=== PATIENT | female | born 1935 | race African-American/Black ===

== ENCOUNTER 2016-12-26 19:21 | Emergency (ER) | payer MEDICARE, MEDICAID ==
[~2016-12-26] VITALS: Ht 165.1 cm; Wt 81.6 kg
--- NOTE | 2016-12-26 19:27 | Emergency Room Report ---
History of Present Illness Present Illness HPI The patient presents via EMS with decreased level of consciousness. The patient was brought 5 PM. She then became gradually unresponsive. She doesn't shelter facility recovering from a brain bleed. Family arrived 45 minutes ago they called 911. Paramedics performed a LAPS evaluation. She had weakness but good strength bilaterally of her hands. The patient is responding to pain but does not communicate. Glucose in field 118. Baseline, she ambulates with assistance, communicates and is able to answer questions appropriately. No motor weakness according to family. No further history is available. 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 In addition to that she had a DVT of her left leg and cellulitis there. She's on warfarin. Allergies: Coded Allergies: CODEINE (Verified Allergy, Unknown, 12/26/16) Patient History Limited by: medical condition Past Medical History: see triage record, old chart reviewed Social History Narrative SNF Reviewed Nursing Documentation: PMH: Agreed, PSxH: Agreed Review of Systems All Other Systems: limited Physical Exam Vital Signs Date Time Temp Pulse Resp B/P Pulse Ox O2 Delivery O2 Flow Rate FiO2 12/26/16 19:18 68 18 97/52 95 Room Air Feels afebrile Sp02 EP Interpretation: reviewed, normal General Appearance: no apparent distress, other - GCSGCS = 7, Stupor Head: normocephalic Eyes: bilateral eye PERRL - difficult to assess as keeping eyes closed, bilateral eye normal inspection ENT: moist mucus membranes - poor dentition, gag + Neck: supple Respiratory: lungs clear, normal breath sounds Cardiovascular #1: regular rate, rhythm Cardiovascular #2: 2+ radial (R) Gastrointestinal: normal inspection, normal bowel sounds, non tender, no mass, non-distended Musculoskeletal: back normal Neurologic: responsive, facial droop, aphasia, motor weakness - L though uses both hands to protect eyes (R>L), Babinski - L, other - L facial paresis, grimmace with R, upgoing toe L Psychiatric: other - resp to pain R Skin: normal inspection, warm/dry Procedures Critical Care Time Critical Care Time Total Critical Care Time: 60 min bedside evaluation and treatment excludes procedures (EKG). Reason for critical care: acute stroke, monitoring BP, repeated neurologic examinations, transfer higher level of care Possible complications: hypotension, hypertension, MN, shock, arrhythmias, metabolic acidosis, end organ damage, respiratory failure. Interventions: Code stroke, eval for TPA, discussion family and neurointensivist , respond to BP fluctuations Course: Patient with ALOC. L sided weakness. Code Stroke. CT no bleed. Determination not TPA candidate. Discussion with neurointensivist, Santinoars, family. Arrange transfer. BP drop, NS begun. Responded with fluids. Arrange ALS transfer. Consultations: nursing staff, EMS, family, Santinoars Performed by: Dr. López Tolerated well condition = critical Medical Decision Making Diagnostic Impression: Primary Impression: Acute CVA (cerebrovascular accident) Additional Impression: Transient hypotension ER Course The patient presents with acute onset of decreased mentation. She has focal findings at this time. Differential includes stroke, brain bleed, exacerbation of prior stroke amongst others. Code stroke is called. Evaluation with the Hyperstat CT scan EKG and labs lizbet Lopez will be placed. 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 Due to the history of being on coumadin - not candidate for TPA. Calling [address] 20:02. Message left - valve machine operator suggests I keep calling. Discussing with [facility] Transfer Center: 20:10 Dr. Gutierrez. He accepts the patient. Repeat evaluation is unchanged. I discussed with family whether the shaking of the arms involved other parts of the body and they state no. Labs with INR 1.3. Rest unremarkable. Patient transfer to higher level of care. PRN coming 20 min ETA @ 21:00 (I called [facility] to consider LAFD). BP dropped to 92 systolic. NS 250 bolus given with elevation of BP to 112. PRN ambulance here. 20:48 - Dr. Mulligan returns call from [facility]. Ruben working on bed - asks that I hold on transfer until that time. Laboratory Tests Test 12/26/16 19:25 12/26/16 19:30 White Blood Count 5.0 K/UL (4.8-10.8) Red Blood Count 4.04 M/UL (4.20-5.40) L Hemoglobin 12.1 G/DL (12.0-16.0) Hematocrit 36.3 % (37.0-47.0) L Mean Corpuscular Volume 90 FL (80-99) Mean Corpuscular Hemoglobin 29.8 PG (27.0-31.0) Mean Corpuscular Hemoglobin Concent 33.2 G/DL (32.0-36.0) Red Cell Distribution Width 12.3 % (11.6-14.8) Platelet Count 248 K/UL (150-450) Mean Platelet Volume 7.3 FL (6.5-10.1) Neutrophils (%) (Auto) 49.2 % (45.0-75.0) Lymphocytes (%) (Auto) 38.3 % (20.0-45.0) Monocytes (%) (Auto) 8.6 % (1.0-10.0) Eosinophils (%) (Auto) 1.8 % (0.0-3.0) Basophils (%) (Auto) 2.1 % (0.0-2.0) H Prothrombin Time 14.0 SEC (9.30-11.50) H Prothrombin Time INR 1.3 (0.9-1.1) H PTT 34 SEC (23-33) H Sodium Level 139 mEQ/L (135-145) Potassium Level 4.0 mEQ/L (3.4-4.9) Chloride Level 100 mEQ/L (98-107) Carbon Dioxide Level 26 mEQ/L (20-30) Anion Gap 13 (5-15) Blood Urea Nitrogen 17 mg/dL (7-23) Creatinine 0.7 mg/dL (0.5-0.9) Estimate Glomerular Filtration Rate mL/min (>60) Glucose Level 118 mg/dL (74-106) H Calcium Level 8.6 mg/dL (8.6-10.2) Total Bilirubin 0.3 mg/dL (0.0-1.2) Aspartate Amino Transferase (AST) 11 U/L (5-40) Alanine Aminotransferase (ALT) 7 U/L (3-33) Alkaline Phosphatase 87 U/L (35-104) Total Creatine Kinase 42 U/L (26-140) Troponin I < 0.30 ng/mL (<=0.30) Total Protein 6.6 g/dL (6.6-8.7) Albumin 3.1 g/dL (3.5-5.2) L Globulin 3.5 g/dL Albumin/Globulin Ratio 0.8 (1.0-2.7) L Triglycerides Level 39 mg/dL (< 150) Cholesterol Level 165 mg/dL (< 200) LDL Cholesterol 103 mg/dL (60-99) H HDL Cholesterol 54 mg/dL (> 60) Cholesterol/HDL Ratio 3.1 (3.3-4.4) L Urine Color Pale yellow Urine Appearance Clear Urine pH 6 (4.5-8.0) Urine Specific [place] 1.015 (1.005-1.035) Urine Protein Negative (NEGATIVE) Urine Glucose (UA) Negative (NEGATIVE) Urine Ketones Negative (NEGATIVE) Urine Occult Blood 1+ (NEGATIVE) H Urine Nitrite Negative (NEGATIVE) Urine Bilirubin Negative (NEGATIVE) Urine Urobilinogen Normal MG/DL (0.0-1.0) Urine Leukocyte Esterase Negative (NEGATIVE) Urine RBC 0-2 /HPF (0 - 2) Urine WBC 0-2 /HPF (0 - 2) Urine Squamous Epithelial Cells Few /LPF (NONE/OCC) Urine Bacteria None /HPF (NONE) EKG Diagnostic Results Rate: normal Rhythm: NSR ST Segments: no acute changes - LVH Rhythm Strip Diag. Results EP Interpretation: yes Rhythm: NSR, no PVC's, no ectopy Chest X-Ray Diagnostic Results Chest X-Ray Ordered: Yes # of Views/Limited/Complete: 1 View EP Interpretation: Yes Interpretation: no consolidation, no effusion, no pneumothorax, no acute cardiopulmonary disease Indication: Other Impression: No acute disease Interpreting ER Provider: Maribel CT/MRI/US Diagnostic Results CT/MRI/US Diagnostic Results : Imaging Test Ordered: head Impression atrophy, prior SDH craniomalacia Status: unchanged Disposition: [facility] HOSP - higher level of care Condition: Critical Deangelo López M.D. Dec 26, 2016 19:27
[2016-12-26 19:52] LABS: BASOPHILS % (AUTO) 2.1 % (0.0-2.0); EOSINOPHILS % (AUTO) 1.8 % (0.0-3.0); LYMPHOCYTES % (AUTO) 38.3 % (20.0-45.0); MEAN CORPUSCULAR HEMOGLOBIN 29.8 PG (27.0-31.0); MEAN CORPUSCULAR HGB CONC 33.2 G/DL (32.0-36.0); MEAN CORPUSCULAR VOLUME 90 FL (80-99); MEAN PLATELET VOLUME 7.3 FL (6.5-10.1); MONOCYTES % (AUTO) 8.6 % (1.0-10.0); NEUTROPHILS % (AUTO) 49.2 % (45.0-75.0); PLATELET COUNT 248 K/UL (150-450); RED BLOOD COUNT 4.04 M/UL (4.20-5.40); RED CELL DISTRIBUTION WIDTH 12.3 % (11.6-14.8)
[2016-12-26 20:08] LABS: APPEARANCE,URINE CLEAR; KETONES,URINE NEGATIVE (NEGATIVE); LEUKOCYTE ESTERASE ,URINE NEGATIVE (NEGATIVE); NITRITE,URINE NEGATIVE (NEGATIVE); PH,URINE 6 (4.5-8.0); PROTEIN,URINE NEGATIVE (NEGATIVE); UROBILINOGEN,URINE NORMAL MG/DL (0.0-1.0)
[2016-12-26 20:17] LABS: RBC,URINE 0-2 /HPF (0 - 2); SQUAMOUS EPITHELIAL CELL,UR FEW /LPF (NONE/OCC); WBC,URINE 0-2 /HPF (0 - 2)
[2016-12-26 20:23] LABS: INR 1.3 (0.9-1.1)
[2016-12-26 20:28] LABS: TROPONIN I < 0.30 ng/mL (<=0.30)
[2016-12-26 20:33] LABS: ALANINE AMINOTRANSFERASE 7 U/L (3-33); ALBUMIN/GLOBULIN RATIO 0.8 (1.0-2.7); ANION GAP 13 (5-15); ASPARTATE AMINO TRANSFERASE 11 U/L (5-40); CALCIUM 8.6 mg/dL (8.6-10.2); CARBON DIOXIDE 26 mEQ/L (20-30); CHLORIDE 100 mEQ/L (98-107); CHOLESTEROL 165 mg/dL (< 200); CHOLESTEROL/HDL RATIO 3.1 (3.3-4.4); CREATININE 0.7 mg/dL (0.5-0.9); HEMOLYSIS 41; LDL CHOLESTEROL (CALC.) 103 mg/dL (60-99); SODIUM 139 mEQ/L (135-145); TOTAL PROTEIN 6.6 g/dL (6.6-8.7)
[2016-12-26] MEDS ORDERED: CATAPRES0.1 MG ORAL (20:55)
[2016-12-26] MEDS ORDERED: KEPPRA500 MG ORAL (20:55)
[2016-12-26] MEDS ORDERED: BENADRYL25 MG ORAL (20:55)
[2016-12-26] MEDS ORDERED: PROTONIX40 MG ORAL (20:55)
[2016-12-26] MEDS ORDERED: SENNA8.6 M2 PO (20:55)
[2016-12-26] MEDS ORDERED: DOCUSATE SODIU100 MG ORAL (20:55)
[2016-12-26] MEDS ORDERED: SEROQUEL25 MG ORAL (20:55)
[2016-12-26] MEDS ORDERED: DIOVAN160 MG ORAL (20:55)
[2016-12-26] MEDS ORDERED: MULTIVITAMINS1 EAC2 ORAL (20:55)
[2016-12-26] MEDS ORDERED: TYLENOL325 MG ORAL (20:55)
[2016-12-26 21:15] VITALS: BP 92/46
[2016-12-26 21:30] VITALS: BP 177/63
[2016-12-26 21:50] VITALS: BP 177/63
--- NOTE | 2016-12-27 10:40 | Diagnostic Imaging Report ---
Indications: Cough Technique: Portable AP chest Findings: Comparison: None Lungs, pleura clear. Heart size, pulmonary vasculature within normal limits. Aortic arch calcified and ectatic/elongated. Left paratracheal soft tissues apparently widened. Patient's head turned to right. Surgical clips in right axilla. IMPRESSION: No evidence of acute cardiopulmonary disease Aortosclerosis and probable chronic hypertensive change. Associated aneurysm not excludable. Apparent left paratracheal soft tissue widening may be artifactually enhanced due to head rotation. Pathology not excludable. Upright PA and lateral chest radiographs with better inspiratory effort and optimal technique recommended for more complete evaluation. Previous right axillary surgery
--- NOTE | 2016-12-28 20:07 | Cardiology Report ---
APPROVED REPORT EKG Measurement Heart [id number] Normal sinus rhythm Minimal voltage criteria for LVH, may be normal variant Prolonged QT Abnormal ECG
== END 2016-12-26 21:55 | disposition short-term general hospital (02) ==
LOC: EDBD 19:21 → EMR 20:41
DX: I63.9 Cerebral infarction, unspecified (principal); I95.9 Hypotension, unspecified; I10 Essential (primary) hypertension; E78.5 Hyperlipidemia, unspecified; Z85.3 Personal history of malignant neoplasm of breast; Z86.718 Personal history of other venous thrombosis and embolism; F25.9 Schizoaffective disorder, unspecified; Z79.899 Other long term (current) drug therapy; Z79.01 Long term (current) use of anticoagulants; Z88.6 Allergy status to analgesic agent
CPT/HCPCS: 36415; 70450; 71010; 80053; 80061; 81003; 82550; 82962; 84484; 85025; 85610; 85730; 86900; 86901; 93005; 96374

== ENCOUNTER 2018-08-19 16:12 | Inpatient (IN) | payer MEDICAID, MEDICARE ==
[~2018-08-19] VITALS: Ht 162.6 cm; Wt 58.1 kg
[~2018-08-19 16:12] MED LIST: BENADRYL25 MG ORAL; CATAPRES0.1 MG ORAL; DIOVAN160 MG ORAL; DOCUSATE SODIU100 MG ORAL; KEPPRA500 MG ORAL; MULTIVITAMINS1 EAC2 ORAL; PROTONIX40 MG ORAL; SENNA8.6 M2 PO; SEROQUEL25 MG ORAL; TYLENOL325 MG ORAL
[2018-08-19 16:15] VITALS: BP 126/66
--- NOTE | 2018-08-19 16:15 | NUR ---
ED Nurse Note: PT BROUGHT IN BY AMBULANCE FROM [facility] DUE TO NAUSEA AND 2 EPISODES OF VOMITING X THIS AM. PT IS AOX2 - NOT ORIENTED TO TIME OR SITUATION. ACTIVE BOWEL SOUNDS IN ALL QUADRANTS. ABDOMEN NONDISTENDED AND NONTENDER TO PALPATION. PT DENIES DIARRHEA.
--- NOTE | 2018-08-19 16:40 | NUR ---
ED Nurse Note: PT COMBATIVE AND RESISTIVE TO CARE. DR. LEAL AWARE. ORDERS FOR SOFT RESTRAINTS PLACED.
--- NOTE | 2018-08-19 16:54 | Emergency Room Report ---
History of Present Illness General Chief Complaint: Abdominal Pain Source: Medical Record Present Illness HPI Patient is an 83-year-old female brought in by EMS after increased abdominal pain and vomiting. Patient reports having increased epigastric pain. She reports having multiple episodes of vomiting. Patient was noted to have prior history of dementia patient [facility] in [facility] after multiple episodes of vomiting. Patient had the been diagnosed with pancreatitis in the past. Per patient's daughter she has had intermittent episodes where she begins vomiting. patient had previous diagnosis of pancreatitis and has had recurrent episodes of pancreatitis despite having never had any alcohol. History is markedly limited by patient's poor cooperation is good Allergies: Coded Allergies: CODEINE (Verified Allergy, Unknown, 12/26/16) Uncoded Allergies: CONTRAST (Allergy, Unknown, 08/19/18) Patient History Past Medical History: see triage record Reviewed Nursing Documentation: PMH: Agreed; PSxH: Agreed Nursing Documentation-PMH Past Medical History: No History, Except For Review of Systems All Other Systems: limited - by mental status Physical Exam Vital Signs Date Time Temp Pulse Resp B/P (MAP) Pulse Ox O2 Delivery O2 Flow Rate FiO2 08/19/18 16:11 98.1 79 16 124/63 94 Room Air General Appearance: alert, Chronically Ill ENT: normal pharynx, normal voice Neck: full range of motion Respiratory: lungs clear, normal breath sounds Cardiovascular #1: normal inspection, no edema Gastrointestinal: non tender, soft Musculoskeletal: normal inspection, back normal Neurologic: normal inspection, alert, responsive, golf course ranger III-XII nml as tested, motor weakness, other - confusion Psychiatric: other - somewhat confused Medical Decision Making Restraint Attestation I, Johnson Condon MD, have personally evaluated this patient. Laboratory tests have been reviewed and addressed accordingly. The patient is deemed to present a danger to themselves and/or others. This is based on the exam, history ( provided by patient, EMS/[facility] and/or family) and observed or reported behavior. Attempts for non-invasive measures have been considered and/or attempted, however, have been futile. It is in the best interest of the nursing staff, the patient, and others involved in this patient's care that behavioral restraints be applied. Patient evaluation reveals the following: . Patient confused attacking staff patient was placed in soft restraints. Diagnostic Impression: Primary Impression: Abdominal pain Additional Impressions: Chronic pancreatitis Dehydration ER Course Patient presented for abdominal pain. Differential diagnoses included ischemic bowel, appendicitis, perforated viscus, abdominal aortic aneurysm, inferior myocardial infarction, viral gastroenteritis among others. Because of complexity of patient's case laboratory testing and imaging studies were ordered. Patient was noted to have prior history of abdominal pain. She had previous episodes of pancreatitis. Patient was noted to have some persistent vomiting. Patient given antiemetics. CT the abdomen pelvis showed no evidence of acute obstruction. Dr. Jonh Vick was contacted for inpatient management due to covering physician for Dr. Gustavo Carrasquillo Labs Test 08/19/18 16:30 White Blood Count 9.8 K/UL (4.8-10.8) Red Blood Count 4.84 M/UL (4.20-5.40) Hemoglobin 14.0 G/DL (12.0-16.0) Hematocrit 41.8 % (37.0-47.0) Mean Corpuscular Volume 86 FL (80-99) Mean Corpuscular Hemoglobin 28.9 PG (27.0-31.0) Mean Corpuscular Hemoglobin Concent 33.5 G/DL (32.0-36.0) Red Cell Distribution Width 12.1 % (11.6-14.8) Platelet Count 417 K/UL (150-450) Mean Platelet Volume 5.8 FL (6.5-10.1) Neutrophils (%) (Auto) 82.4 % (45.0-75.0) Lymphocytes (%) (Auto) 10.5 % (20.0-45.0) Monocytes (%) (Auto) 6.3 % (1.0-10.0) Eosinophils (%) (Auto) 0.0 % (0.0-3.0) Basophils (%) (Auto) 0.8 % (0.0-2.0) Prothrombin Time 10.9 SEC (9.30-11.50) Prothromb Time International Ratio 1.0 (0.9-1.1) Activated Partial Thromboplast Time 30 SEC (23-33) Urine Color Yellow Urine Appearance Clear Urine pH 7 (4.5-8.0) Urine Specific [place] 1.010 (1.005-1.035) Urine Protein 2+ (NEGATIVE) Urine Glucose (UA) Negative (NEGATIVE) Urine Ketones 4+ (NEGATIVE) Urine Blood 1+ (NEGATIVE) Urine Nitrite Negative (NEGATIVE) Urine Bilirubin Negative (NEGATIVE) Urine Urobilinogen 1 MG/DL (0.0-1.0) Urine Leukocyte Esterase 1+ (NEGATIVE) Urine RBC 0-2 /HPF (0 - 2) Urine WBC 0-2 /HPF (0 - 2) Urine Squamous Epithelial Cells Few /LPF (NONE/OCC) Urine Bacteria None /HPF (NONE) Sodium Level 146 MMOL/L (136-145) Potassium Level 3.3 MMOL/L (3.5-5.1) Chloride Level 104 MMOL/L (98-107) Carbon Dioxide Level 30 MMOL/L (21-32) Anion Gap 12 mmol/L (5-15) Blood Urea Nitrogen 17 mg/dL (7-18) Creatinine 0.9 MG/DL (0.55-1.30) Estimat Glomerular Filtration Rate mL/min (>60) Glucose Level 119 MG/DL (74-106) Lactic Acid Level 1.00 mmol/L (0.4-2.0) Calcium Level 9.1 MG/DL (8.5-10.1) Phosphorus Level 3.1 MG/DL (2.5-4.9) Magnesium Level 2.5 MG/DL (1.8-2.4) Total Bilirubin 0.4 MG/DL (0.2-1.0) Aspartate Amino Transf (AST/SGOT) 14 U/L (15-37) Alanine Aminotransferase (ALT/SGPT) 15 U/L (12-78) Alkaline Phosphatase 127 U/L (46-116) Total Creatine Kinase 57 U/L (26-308) Creatine Kinase MB 0.9 NG/ML (0.0-3.6) Creatine Kinase MB Relative Index 1.5 Troponin I 0.035 ng/mL (0.000-0.056) Pro-B-Type Natriuretic Peptide 551 pg/mL (0-125) Total Protein 8.3 G/DL (6.4-8.2) Albumin 3.5 G/DL (3.4-5.0) Globulin 4.8 g/dL Albumin/Globulin Ratio 0.7 (1.0-2.7) EKG Diagnostic Results Rate: normal Rhythm: NSR ST Segments: no acute changes Last Vital Signs Date Time Temp Pulse Resp B/P (MAP) Pulse Ox O2 Delivery O2 Flow Rate FiO2 08/19/18 16:11 98.1 79 16 124/63 94 Room Air Status: unchanged Disposition: ADMITTED INPATIENT Condition: Serious Johnson Condon MD Aug 19, 2018 16:54
--- NOTE | 2018-08-19 16:55 | NUR ---
ED Nurse Note: PT NOW CALM AND VERBALIZES THAT SHE WILL BE COOPERATIVE TO CARE. RESTRAINTS REMOVED. PT CALM AND COOPERATIVE. FAMILY AT BEDSIDE.
[2018-08-19 17:03] LABS: BASOPHILS % (AUTO) 0.8 % (0.0-2.0); HEMATOCRIT 41.8 % (37.0-47.0); LYMPHOCYTES % (AUTO) 10.5 % (20.0-45.0); MEAN CORPUSCULAR VOLUME 86 FL (80-99); MONOCYTES % (AUTO) 6.3 % (1.0-10.0); NEUTROPHILS % (AUTO) 82.4 % (45.0-75.0); PLATELET COUNT 417 K/UL (150-450); RED BLOOD COUNT 4.84 M/UL (4.20-5.40); RED CELL DISTRIBUTION WIDTH 12.1 % (11.6-14.8); WHITE BLOOD COUNT 9.8 K/UL (4.8-10.8)
[2018-08-19 17:13] LABS: ANION GAP 12 mmol/L (5-15); BLOOD UREA NITROGEN 17 mg/dL (7-18); CALCIUM 9.1 MG/DL (8.5-10.1); CARBON DIOXIDE 30 MMOL/L (21-32); CHLORIDE 104 MMOL/L (98-107); CREATININE 0.9 MG/DL (0.55-1.30); POTASSIUM 3.3 MMOL/L (3.5-5.1); SODIUM 146 MMOL/L (136-145)
[2018-08-19 17:14] LABS: APPEARANCE,URINE CLEAR; BILIRUBIN, URINE NEGATIVE (NEGATIVE); GLUCOSE, URINE (UA) NEGATIVE (NEGATIVE); KETONES,URINE 4+ (NEGATIVE); LEUKOCYTE ESTERASE ,URINE 1+ (NEGATIVE); NITRITE,URINE NEGATIVE (NEGATIVE); PH,URINE 7 (4.5-8.0); PROTEIN,URINE 2+ (NEGATIVE); UROBILINOGEN,URINE 1 MG/DL (0.0-1.0)
[2018-08-19 17:15] LABS: COLOR,URINE YELLOW
[2018-08-19 17:27] LABS: ALANINE AMINOTRANSFERASE 15 U/L (12-78); ALBUMIN 3.5 G/DL (3.4-5.0); ALBUMIN/GLOBULIN RATIO 0.7 (1.0-2.7); ALKALINE PHOSPHATASE 127 U/L (46-116); ASPARTATE AMINO TRANSFERASE 14 U/L (15-37); BILIRUBIN,TOTAL 0.4 MG/DL (0.2-1.0); CREATINE KINASE 57 U/L (26-308); PHOSPHORUS 3.1 MG/DL (2.5-4.9)
[2018-08-19 17:30] VITALS: BP 139/54
[2018-08-19 18:05] LABS: CKMB 0.9 NG/ML (0.0-3.6)
[2018-08-19] MEDS ORDERED: Isovue-300 100ml vial INJ PRN (18:15)
--- NOTE | 2018-08-19 19:13 | NUR ---
ED Nurse Note: REPORT GIVEN TO ALLYN MARTIN.
--- NOTE | 2018-08-19 19:21 | NUR ---
ED Nurse Note: Received report from Duane GRUBER. Pt in bed awake and calm with daughter at bedside. No distress noted. Pt's needs met. Awaiting bed for admission transfer. Will continue to monitor.
[2018-08-19 19:31] VITALS: BP 124/60
[2018-08-19] MEDS ORDERED: FAMOTIDINE20 MG ORAL (19:54)
[2018-08-19] MEDS ORDERED: MOM30 ML ORAL (19:54)
[2018-08-19] MEDS ORDERED: BISACODYL5 MG ORAL (19:54)
[2018-08-19] MEDS ORDERED: COMPAZINE10 MG ORAL (19:54)
[2018-08-19] MEDS ORDERED: ARICEPT5 MG ORAL (19:54)
[2018-08-19] MEDS ORDERED: LEVETIRACETAM1000 MG ORAL (19:54)
[2018-08-19] MEDS ORDERED: NORCO 5-325 TA1 EACH ORAL (19:54)
[2018-08-19] MEDS ORDERED: NORVASC10 MG ORAL (19:54)
[2018-08-19 21:30] VITALS: BP 118/46
[2018-08-19 23:30] VITALS: BP 127/78
[2018-08-20] VITALS (7 sets, daily range): BP systolic 120–142; BP diastolic 61–81
--- NOTE | 2018-08-20 00:22 | NUR ---
ED Nurse Note: Called and left page message with MD Gonsalez's secretary bookkeeper. Awaiting call back. CN made aware.
--- NOTE | 2018-08-20 01:35 | NUR ---
ED Nurse Note: Pt awake, confused, but stable and calm. No dsitress noted. Will continue to monitor.
--- NOTE | 2018-08-20 02:47 | NUR ---
ED Nurse Note: Report given to Pascale GRUBER for admission transfer on over telephone.
--- NOTE | 2018-08-20 03:10 | NUR ---
NURSE NOTES: RECEIVED PATIENT FROM ER, GOT REPORT FROM ALLYN BENITEZ. PATIENT IN BED ALERT TO NAME AND PLACE, CONFUSED. IV IN PLACE PATENT. PATIENT UNABLE TO SIGN BELONGING LIST, VERIFIED WITH SECOND RN, DEBBIE, BELONGINGS ONLY CAP AND BLANKET. PATIENT DENIES PAIN AND NO S/S DISTRESS NOTED. SKIN ASSESSMENT DONE, NOTED WITH WOUND/PRESSURE ULCER ON RIGHT BUTTOCK, WCP TAKEN. BED IN LOWEST POSITION, CALL LIGHT WITHIN REACH. WILL CONTINUE TO MONITOR.
--- NOTE | 2018-08-20 04:10 | NUR ---
NURSE NOTES: CALLED AND SPOKE DR. PAYNE AND RECEIVED ADMISSION ORDERS. WHEN NURSE ASKED ABOUT DVT PROPHYLAXIS AND CODE STATUS, STATED "I'LL DO IT LATER." AND HUNG UP THE PHONE. REST OF THE ADMISSION ORDERS WERE CARRIED OUT. CHARGE NURSE MADE AWARE.
[2018-08-20] MEDS ORDERED: Bisacodyl EC 5mg tab ORAL PRN (04:30)
[2018-08-20] MEDS ORDERED: Milk of Magnesia 30ml Ud ORAL PRN (04:30)
--- NOTE | 2018-08-20 07:33 | NUR ---
HAND-OFF: Report given to ADITHYA TO RN.
--- NOTE | 2018-08-20 08:05 | NUR ---
NURSE NOTES: Pt pleasant, assisted with breakfast tray. Answered all questions appropriately. No signs of distress. Introduced to call light , and use. Current plan of care will be followed
[2018-08-20] MEDS: Docusate 100mg cap ORAL SCH ×2 (09:57→17:49)
[2018-08-20] MEDS: Donepezil 5mg Tab ORAL SCH ×2 (09:57→17:49)
[2018-08-20] MEDS: Sennosides 8.6mg tab ORAL SCH (09:57)
--- NOTE | 2018-08-20 10:17 | NUR ---
NURSE NOTES: Pt refused Keppra risk and benefits explained. Pt stated she is taking to much medication and usually does not take so much. Ordred dose ex palined. Repeatedly placed pill in each hand has if it was taken. Pt stated she would save it for later. Safety measures explained
--- NOTE | 2018-08-20 11:00 | NUR ---
NURSE NOTES: Per report of family member pt was awake passed 2:00 oclock. Pt is sleeping comfotably
[2018-08-20 13:05] LABS: ANION GAP 7 mmol/L (5-15); BLOOD UREA NITROGEN 19 mg/dL (7-18); CALCIUM 8.9 MG/DL (8.5-10.1); CARBON DIOXIDE 30 MMOL/L (21-32); CHLORIDE 110 MMOL/L (98-107); POTASSIUM 3.2 MMOL/L (3.5-5.1); SODIUM 147 MMOL/L (136-145)
[2018-08-20 13:10] LABS: BASOPHILS % (AUTO) 1.2 % (0.0-2.0); EOSINOPHILS % (AUTO) 1.6 % (0.0-3.0); HEMATOCRIT 36.7 % (37.0-47.0); HEMOGLOBIN 11.9 G/DL (12.0-16.0); LYMPHOCYTES % (AUTO) 21.8 % (20.0-45.0); MEAN CORPUSCULAR VOLUME 88 FL (80-99); MONOCYTES % (AUTO) 6.7 % (1.0-10.0); NEUTROPHILS % (AUTO) 68.7 % (45.0-75.0); PLATELET COUNT 353 K/UL (150-450); RED BLOOD COUNT 4.15 M/UL (4.20-5.40); RED CELL DISTRIBUTION WIDTH 13.3 % (11.6-14.8); WHITE BLOOD COUNT 7.2 K/UL (4.8-10.8)
--- NOTE | 2018-08-20 14:34 | NUR ---
CASE MANAGEMENT: INITIAL REVIEW 83 YO F BIBA FROM [facility] CC: ABD PAIN PMHx: DENIES SI:GEN WEAKNESS. DEHYDRATION. T 98.1 HR 79 RR 16 B/P 124/63 SATS 94% ON RA NA 146 K 3.3 GLU 119 MG 2.5 AST 14 ALP 127 IS: NS BOLUS X1 ZOFRAN IV X1 PATIENT ADMITTED TO MED/SURG 08/19/2018 @ 1923 DCP: PATIENT TO BE DISCHARGED TO SNF ONCE MEDICALLY CLEARED. PLAN OF CARE: WOUND CARE
--- NOTE | 2018-08-20 19:30 | NUR ---
NURSE NOTES: Received patient in bed awake with periods of confusion. Re-orient patient to place and time. No signs of distress noted. No facial grimacing noted. Inserted IV line left hand 22 and fluids running at 75 cc/hr. Bed in lowest position and locked. Call light provided and instructed patient to call if need of help. Will continue to monitor.
--- NOTE | 2018-08-20 20:12 | NUR ---
NURSE NOTES: Pt slightly confused. Required to be reorientated to time and place. Dr Caicedo phoned in order to obtain pending orders, gave orders for pt to have Lovenox 30 mg subq daily, informed that pt is incontinent and is unaware of when she has to urinate gave okay to obtain specimen by straight cath. Sister was here earlier in shift. Pt is able to follow commands. Call light is in reach. Oncoming nurse made aware of new orders
--- NOTE | 2018-08-20 20:17 | NUR ---
HAND-OFF: Report given to .Maximino GRUBER
--- NOTE | 2018-08-20 20:20 | History and Physical ---
History of Present Illness General Date patient seen: Aug 20, 2018 Reason for Hospitalization: Abdominal Pain Present Illness HPI 83 y/o aa female sent from snf last night after had n/v x2. Pt. says feels better today. She had this previously denies f/c, no abd pain or diarrhea. says uop ok, appetite has improved. Allergies: Coded Allergies: CODEINE (Verified Allergy, Unknown, 12/26/16) Uncoded Allergies: CONTRAST (Allergy, Unknown, 08/19/18) Medication History Scheduled Amlodipine Besylate (Norvasc), 10 MG ORAL DAILY, (Reported) Docusate Sodium* (Docusate Sodium*), 100 MG ORAL TWICE A DAY, (Reported) Donepezil Hcl* (Aricept*), 5 MG ORAL BID, (Reported) Famotidine (Famotidine), 20 MG ORAL DAILY, (Reported) Levetiracetam (Levetiracetam), 1,000 MG ORAL Q12HR, (Reported) Sennosides (Senna), 8.6 MG PO DAILY, (Reported) Scheduled PRN Acetaminophen (Tylenol), 650 MG ORAL Q4HR PRN for For Pain, (Reported) Bisacodyl* (Dulcolax*), 5 MG ORAL DAILY PRN for Constipation, (Reported) Clonidine Hcl* (Catapres*), 0.1 MG ORAL EVERY 6 HOURS PRN for For High Blood Pressure, (Reported) Hydrocodone Bit/Acetaminophen 5-325* ([place] 5-325*), 1 TAB ORAL Q4H PRN for Severe Pain (Pain Scale 7-10), (Reported) Magnesium Hydroxide (Milk of Magnesia), 30 ML ORAL DAILY PRN for Constipation, ( Reported) Prochlorperazine (Compazine*), 10 MG ORAL Q6H PRN for Nausea & Vomiting, ( Reported) Discontinued Medications Diphenhydramine Hcl* (Benadryl*), 50 MG ORAL Q8HR PRN for Itching, (Reported) Discontinued Reason: Pt stopped taking med Levetiracetam (Keppra), 500 MG ORAL BID, (Reported) Discontinued Reason: Pt stopped taking med Multivitamins* (Multivitamins*), 1 TAB ORAL DAILY, (Reported) Discontinued Reason: Pt stopped taking med Pantoprazole* (Protonix*), 40 MG ORAL DAILY, (Reported) Discontinued Reason: Pt stopped taking med Quetiapine Fumarate* (Seroquel*), 25 MG ORAL DAILY, (Reported) Discontinued Reason: Pt stopped taking med Valsartan (Diovan), 80 MG ORAL DAILY, (Reported) Discontinued Reason: Pt stopped taking med Patient History Limited by: age, medical condition History Provided By: Patient Healthcare decision maker janette chavez, daughter Resuscitation status Advanced Directive on File Review of Systems Constitutional: Reports: malaise Eye: Denies: no symptoms, see HPI, eye pain, blurred vision, tearing, double vision, nose pain, nose congestion, acuity changes, discharge, other ENT: Denies: no symptoms, see HPI, ear pain, ear discharge, nose pain, nose congestion, throat pain, throat swelling, mouth pain, hearing loss, nasal discharge, other Respiratory: Denies: no symptoms, see HPI, cough, orthopnea, shortness of breath, stridor, wheezing, JALLOH, sputum, other Cardiovascular: Denies: no symptoms, see HPI, chest pain, edema, palpitations, syncope, PND, other Gastrointestinal: Reports: nausea, vomiting Genitourinary: Denies: no symptoms, see HPI, discharge, dysuria, frequency, hematuria, pain, retention, incontinence, urgency, vag bleed/dc, other Musculoskeletal: Denies: no symptoms, see HPI, back pain, gout, joint pain, joint swelling, muscle pain, muscle stiffness, other Skin: Denies: no symptoms, see HPI, rash, change in color, change in hair/nails , dryness, lesions, other Psychiatric: Denies: no symptoms, see HPI, prior hx, anxiety, depressed feelings, emotional problems, SI, HI, hallucinations, other Neurological: Denies: no symptoms, see HPI, headache, numbness, paresthesia, seizure, tingling, tremors, focal weakness, syncope, dizziness, other Endocrine: Denies: no symptoms, see HPI, excessive sweating, flushing, intolerance to temperature, increased thirst, increased urine, unexplained weight loss, other Physical Exam General Appearance: no apparent distress HEENT: normocephalic, atraumatic, mucous membranes moist, PERRL Neck: non-tender, supple Respiratory/Chest: chest wall non-tender, lungs clear, no accessory muscle use Breasts: no discharge Cardiovascular/Chest: normal peripheral pulses, normal rate Abdomen: normal bowel sounds, soft, no organomegaly, no mass Genitourinary/Rectal: normal genital exam Extremities: non-tender 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, no motor/sensory deficits, responsive Musculoskeletal: normal muscle bulk Last 24 Hour Vital Signs Date Time Temp Pulse Resp B/P (MAP) Pulse Ox O2 Delivery O2 Flow Rate FiO2 08/20/18 12:00 97.9 68 16 142/75 (97) 97 08/20/18 09:56 71 133/79 08/20/18 09:00 Room Air 08/20/18 08:00 97.8 71 18 133/69 (90) 95 08/20/18 04:41 Room Air 08/20/18 03:55 98.0 74 18 120/69 (86) 95 08/20/18 02:41 98.0 77 15 134/61 100 Room Air 08/20/18 02:30 98.0 71 15 134/61 100 Room Air 08/20/18 01:30 98.0 73 15 122/81 99 Room Air 08/19/18 23:30 98.2 71 14 127/78 100 Room Air 08/19/18 21:30 98.1 71 16 118/46 99 Room Air Intake and Output 08/19/18 08/20/18 19:00 07:00 Intake Total 1000 ml 60 ml Balance 1000 ml 60 ml Intake Oral 60 ml IV Total 1000 ml # Voids 1 1 Laboratory Tests Test 08/20/18 11:00 White Blood Count 7.2 K/UL (4.8-10.8) Red Blood Count 4.15 M/UL (4.20-5.40) L Hemoglobin 11.9 G/DL (12.0-16.0) L Hematocrit 36.7 % (37.0-47.0) L Mean Corpuscular Volume 88 FL (80-99) Mean Corpuscular Hemoglobin 28.7 PG (27.0-31.0) Mean Corpuscular Hemoglobin Concent 32.5 G/DL (32.0-36.0) Red Cell Distribution Width 13.3 % (11.6-14.8) Platelet Count 353 K/UL (150-450) Mean Platelet Volume 6.0 FL (6.5-10.1) L Neutrophils (%) (Auto) 68.7 % (45.0-75.0) Lymphocytes (%) (Auto) 21.8 % (20.0-45.0) Monocytes (%) (Auto) 6.7 % (1.0-10.0) Eosinophils (%) (Auto) 1.6 % (0.0-3.0) Basophils (%) (Auto) 1.2 % (0.0-2.0) Sodium Level 147 MMOL/L (136-145) H Potassium Level 3.2 MMOL/L (3.5-5.1) L Chloride Level 110 MMOL/L (98-107) H Carbon Dioxide Level 30 MMOL/L (21-32) Anion Gap 7 mmol/L (5-15) Blood Urea Nitrogen 19 mg/dL (7-18) H Creatinine 1.0 MG/DL (0.55-1.30) Estimat Glomerular Filtration Rate mL/min (>60) Glucose Level 95 MG/DL (74-106) Calcium Level 8.9 MG/DL (8.5-10.1) Height (Feet): 5 Height (Inches): 4.00 Weight (Pounds): 128 Medications Current Medications Medications (Trade) Dose Ordered Sig/Nir Route PRN Reason Start Time Stop Time Status Last Admin Dose Admin Acetaminophen (Tylenol) 650 mg Q4HR PRN ORAL For Pain 08/20/18 04:30 09/19/18 04:29 Amlodipine Besylate (Norvasc) 10 mg DAILY ORAL 08/20/18 09:00 09/19/18 08:59 08/20/18 09:56 Bisacodyl (Dulcolax) 5 mg DAILY PRN ORAL Constipation 08/20/18 04:30 09/19/18 04:29 Clonidine HCl (Catapres Tab) 0.1 mg EVERY 6 HOURS PRN ORAL For High Blood Pressure 08/20/18 04:30 09/19/18 04:29 Docusate Sodium (Colace) 100 mg TWICE A DAY ORAL 08/20/18 09:00 09/19/18 08:59 08/20/18 17:49 Donepezil HCl (Aricept) 5 mg BID ORAL 08/20/18 09:00 09/19/18 08:59 08/20/18 17:49 Enoxaparin Sodium (Lovenox) 30 mg DAILY SUBQ 08/21/18 09:00 09/20/18 08:59 Famotidine (Pepcid) 20 mg DAILY ORAL 08/20/18 09:00 09/19/18 08:59 Iopamidol (Isovue-300 100ml) 100 ml NOW PRN INJ Radiology Procedure 08/19/18 18:15 Levetiracetam (Keppra) 1,000 mg Q12HR ORAL 08/20/18 09:00 09/19/18 08:59 Magnesium Hydroxide (Mom) 30 ml DAILY PRN ORAL Constipation 08/20/18 04:30 09/19/18 04:29 Ondansetron HCl (Zofran) 4 mg Q6H PRN IVP Nausea & Vomiting 08/20/18 04:15 09/19/18 04:14 Sennosides (Senokot) 8.6 mg DAILY ORAL 08/20/18 09:00 09/19/18 08:59 08/20/18 09:57 Assessment/Plan Problem List: (1) HTN (hypertension) ICD Codes: I10 - Essential (primary) hypertension SNOMED: 09940546 Qualifiers: Qualified Codes: I10 - Essential (primary) hypertension (2) CHF (congestive heart failure) Assessment & Plan: volume down now, control bp ICD Codes: I50.9 - Heart failure, unspecified SNOMED: 26787126 (3) DM2 (diabetes mellitus, type 2) Assessment & Plan: follow bs closely ICD Codes: E11.9 - Type 2 diabetes mellitus without complications SNOMED: 23697821 (4) Dehydration Assessment & Plan: -start ivf -zofran for n/v prn ICD Codes: E86.0 - Dehydration SNOMED: 40319378 (5) Abdominal pain Assessment & Plan: -denies now ICD Codes: R10.9 - Unspecified abdominal pain SNOMED: 01169632 Qualifiers: Qualified Codes: R10.84 - Generalized abdominal pain Status: stable Jonh Gonsalez M.D. Aug 20, 2018 20:20
[2018-08-20] MEDS: 1/2NS w/KCl 20mEq 1000ml 1,000 ML IV SCH (21:56)
[2018-08-20] MEDS: NovoLOG Insulin Flexpen SUBQ SCH (21:57)
[2018-08-21] VITALS: BP 153/67
[2018-08-21 04:00] VITALS: BP 158/66
--- NOTE | 2018-08-21 05:30 | NUR ---
NURSE NOTES: Collected urine through straight cath order by Dr. Gonsalez for UA. Patient tolerwate Addendum: 08/21/18 at 0654 by ESTER LONG RN RN Collected urine through straight cath order by Dr. Gonsalez for UA. Patient tolerated it well. Send to LAB.
[2018-08-21] MEDS: NovoLOG Insulin Flexpen SUBQ SCH ×4 (05:59→21:00)
[2018-08-21 07:25] LABS: APPEARANCE,URINE CLEAR; BILIRUBIN, URINE NEGATIVE (NEGATIVE); COLOR,URINE PALE YELLOW; GLUCOSE, URINE (UA) NEGATIVE (NEGATIVE); KETONES,URINE NEGATIVE (NEGATIVE); LEUKOCYTE ESTERASE ,URINE 1+ (NEGATIVE); NITRITE,URINE NEGATIVE (NEGATIVE); PH,URINE 8 (4.5-8.0); PROTEIN,URINE NEGATIVE (NEGATIVE); UROBILINOGEN,URINE 1 MG/DL (0.0-1.0)
--- NOTE | 2018-08-21 07:29 | NUR ---
HAND-OFF: Report given to ALLYN Burrell.
[2018-08-21 07:46] LABS: BASOPHILS % (AUTO) 1.1 % (0.0-2.0); EOSINOPHILS % (AUTO) 2.4 % (0.0-3.0); HEMATOCRIT 35.6 % (37.0-47.0); HEMOGLOBIN 11.8 G/DL (12.0-16.0); LYMPHOCYTES % (AUTO) 17.8 % (20.0-45.0); MEAN CORPUSCULAR VOLUME 88 FL (80-99); MONOCYTES % (AUTO) 8.8 % (1.0-10.0); NEUTROPHILS % (AUTO) 69.9 % (45.0-75.0); PLATELET COUNT 318 K/UL (150-450); RED BLOOD COUNT 4.03 M/UL (4.20-5.40); RED CELL DISTRIBUTION WIDTH 12.7 % (11.6-14.8); WHITE BLOOD COUNT 5.9 K/UL (4.8-10.8)
--- NOTE | 2018-08-21 07:59 | NUR ---
NURSE NOTES: Pt received awake , Attempting to wrap up morning breakfast," I am going to save it for later." Pt encouraged to eat, substitute offered with refusal. Call light is in reach . Current plan of care will be followed
[2018-08-21 08:00] VITALS: BP 139/77
[2018-08-21 08:07] LABS: ANION GAP 7 mmol/L (5-15); BLOOD UREA NITROGEN 10 mg/dL (7-18); CALCIUM 8.1 MG/DL (8.5-10.1); CARBON DIOXIDE 31 MMOL/L (21-32); CHLORIDE 107 MMOL/L (98-107); CREATININE 0.7 MG/DL (0.55-1.30); POTASSIUM 3.3 MMOL/L (3.5-5.1); SODIUM 144 MMOL/L (136-145)
[2018-08-21] MEDS: Docusate 100mg cap ORAL SCH ×2 (10:18→18:22)
[2018-08-21] MEDS: Sennosides 8.6mg tab ORAL SCH (10:18)
[2018-08-21] MEDS: Donepezil 5mg Tab ORAL SCH ×2 (10:19→18:22)
[2018-08-21] MEDS: Enoxaparin 30mg Inj SUBQ SCH (10:21)
[2018-08-21 12:00] VITALS: BP 141/62
[2018-08-21] MEDS: 1/2NS w/KCl 20mEq 1000ml 1,000 ML IV SCH (12:04)
[2018-08-21 16:00] VITALS: BP 138/69
--- NOTE | 2018-08-21 16:28 | Cardiology Report ---
APPROVED REPORT EKG Measurement Heart [id number] Normal sinus rhythm Possible Left atrial enlargement Borderline ECG
--- NOTE | 2018-08-21 19:35 | NUR ---
NURSE NOTES: Received patient in bed awake with periods of confusion, re-orient patient with time and place. No signs of pain or any discomfort noted. IV line intact and fluids running 75 cc/hr. Bed in lowest position and locked. Provided call light and instructed patient to use when need of help. Will continue to monitor.
[2018-08-21 20:00] VITALS: BP 140/97
--- NOTE | 2018-08-21 20:01 | NUR ---
NURSE NOTES: Pt required more assistance today with plan of care. Does display confusion. Ate more when fed. Requires repeated redirection. IV remains patent. phoned earlier in shift to report abnormal lab. NO NEW ORDERS given. Family has been at the bed side. Repositioned q2 hours for comfort. Pt at times is restless moving sheets and blankets. Cooperated with medication regimen to day.
--- NOTE | 2018-08-21 20:05 | NUR ---
HAND-OFF: Report given to Minerva GRUBER.
[2018-08-22] VITALS: BP 136/71
[2018-08-22] MEDS: 1/2NS w/KCl 20mEq 1000ml 1,000 ML IV SCH (00:47)
[2018-08-22 04:00] VITALS: BP 153/73
[2018-08-22] MEDS: NovoLOG Insulin Flexpen SUBQ SCH ×2 (06:30→11:30)
--- NOTE | 2018-08-22 07:35 | NUR ---
HAND-OFF: Report given to ALLYN De La Rosa.
[2018-08-22 08:00] VITALS: BP 151/73
[2018-08-22] MEDS: Docusate 100mg cap ORAL SCH (09:19)
[2018-08-22] MEDS: Sennosides 8.6mg tab ORAL SCH (09:19)
[2018-08-22] MEDS: Donepezil 5mg Tab ORAL SCH (09:19)
[2018-08-22] MEDS: Enoxaparin 30mg Inj SUBQ SCH (09:22)
--- NOTE | 2018-08-22 10:20 | Nephrology Progress Note ---
Assessment/Plan Problem List: (1) HTN (hypertension) Assessment & Plan: -adjust meds to better control ICD Codes: I10 - Essential (primary) hypertension SNOMED: 84811738 Qualifiers: Qualified Codes: I10 - Essential (primary) hypertension (2) CHF (congestive heart failure) Assessment & Plan: volume down now, control bp with afterload reducers ICD Codes: I50.9 - Heart failure, unspecified SNOMED: 01723535 (3) DM2 (diabetes mellitus, type 2) Assessment & Plan: follow bs closely ICD Codes: E11.9 - Type 2 diabetes mellitus without complications SNOMED: 71836059 (4) Dehydration Assessment & Plan: -start ivf -zofran for n/v prn ICD Codes: E86.0 - Dehydration SNOMED: 79800317 (5) Abdominal pain Assessment & Plan: -denies now ICD Codes: R10.9 - Unspecified abdominal pain SNOMED: 99237699 Qualifiers: Qualified Codes: R10.84 - Generalized abdominal pain Subjective Date patient seen: Aug 21, 2018 Respiratory: Reports: no symptoms Gastrointestinal/Abdominal: Reports: no symptoms Neurologic/Psychiatric: Reports: no symptoms Allergies: Coded Allergies: CODEINE (Verified Allergy, Unknown, 12/26/16) Uncoded Allergies: CONTRAST (Allergy, Unknown, 08/19/18) Subjective pt. seen and examined good uop no further n/v Objective Last 24 Hour Vital Signs Date Time Temp Pulse Resp B/P (MAP) Pulse Ox O2 Delivery O2 Flow Rate FiO2 08/22/18 09:19 68 151/73 08/22/18 08:00 97.7 68 18 151/73 (99) 97 08/22/18 04:00 97.4 73 16 153/73 (99) 97 08/22/18 00:00 97.9 69 16 136/71 (92) 98 08/21/18 21:00 Room Air 08/21/18 20:00 98.4 71 16 140/97 (111) 95 08/21/18 16:00 97.8 138 16 138/69 (92) 08/21/18 12:00 98.5 67 14 141/62 (88) 98 08/21/18 10:19 72 128/74 Intake and Output 08/21/18 08/22/18 19:00 07:00 Intake Total 1645 ml 900 ml Balance 1645 ml 900 ml Intake Oral 820 ml IV Total 825 ml 900 ml # Voids 6 2 Height (Feet): 5 Height (Inches): 4.00 Weight (Pounds): 128 General Appearance: no apparent distress, confused EENT: PERRL/EOMI, normal ENT inspection Neck: non-tender Cardiovascular: normal peripheral pulses Respiratory/Chest: lungs clear Abdomen: non tender Extremities: normal range of motion Skin: normal pigmentation Jonh Gonsalez M.D. Aug 22, 2018 10:20
--- NOTE | 2018-08-22 10:22 | Discharge Summary ---
Discharge Summary Hospital Course Date of Admission Aug 19, 2018 at 19:23 Date of Discharge Admitting Diagnosis generalized weakness, dehydration HPI Dede Brewer is a 83 year old female who was admitted on Aug 19, 2018 at 19: 23 for Generalized Weakness,Dehydration Discharge Condition Upon Discharge: stable Discharge Disposition Patient was discharged [facility] f/u with PMD Discharge Diagnoses: (1) HTN (hypertension) (2) DM2 (diabetes mellitus, type 2) (3) Dehydration (4) Abdominal pain Jonh Gonsalez M.D. Aug 22, 2018 10:22
--- NOTE | 2018-08-22 10:46 | NUR ---
*-* DISCHARGE PLANNING *-* PATIENT HAS BEEN REFERRED BACK TO: [facility] P:[phone] F:[phone]
--- NOTE | 2018-08-22 11:30 | NUR ---
*-* DISCHARGE PLANNED *-* PATIENT IS DISCHARGE TO: [facility] ROOM# 309-[address] [facility] T:[phone] FOR NURSE TO NURSE REPORT. [facility] HAS BEEN ARRANGED FOR LAB SCIENTIST AT [id number] Addendum: 08/22/18 at 1143 by ENRIQUE DE LUNA CM LVM FOR CEASAR WALKER TO MAKE AWARE OF HER MOTHERS D/C AND RETURNING BACK TO [facility]
[2018-08-22 12:00] VITALS: BP 103/80
--- NOTE | 2018-08-22 15:50 | NUR ---
NURSE NOTES: patient has been discharged back to [facility], daughter Stefany Duncan is aware, report given to ALLYN Carlos from the facility. Daughter and ALLYN Carlos were inquiring about GI workup, as pt had vomiting at the facility. Report from CT abdomen and pelvis without contrast was just uploaded and reported cholelithiasis and diverticulosis without evidence of diverticulitis. Reported findings to dr. Gonsalez, who confirmed the DC. Patient in stable condition and VVSS. Daughter signed off belongings list and patient left with all her belongings. Documented skin condition at the buttocks, picture taken, no more wound, it has resurfaced. Taken IV access off, no bleeding after site compression. Given discharge packet with medication reconciliation to [facility] Leatha Shrestha.
== END 2018-08-22 15:50 | DRG 641 ==
LOC: EDBD 16:12 → EMR 16:45 → EDBEDREQSVC 17:34 → EDBEDREQ 17:35 → 4E 19:23 → EDBEDREQSVC 08-20 01:06 → EDBEDREQ 08-20 01:51
DX: E86.0 Dehydration (principal); R10.9 Unspecified abdominal pain; I11.0 Hypertensive heart disease with heart failure; I50.9 Heart failure, unspecified; E11.9 Type 2 diabetes mellitus without complications; Z88.6 Allergy status to analgesic agent; Z91.041 Radiographic dye allergy status
CPT/HCPCS: 36415; 71045; 74176; 80048; 80053; 80299; 81001; 81003; 82550; 82553; 82962; 83605; 83735; 83880; 84100; 84484; 85025; 85610; 85730; 87040; 87081; 87181; 93005; 96361; 96374; 99285; J1815; J2405